=== PATIENT | female | born 1970 | race African-American/Black ===

== ENCOUNTER 2018-07-03 19:03 | Emergency (ER) | payer BC, MEDICAID ==
[~2018-07-03] VITALS: Ht 154.9 cm; Wt 51.3 kg
[2018-07-03 19:32] VITALS: BP 127/91
[2018-07-03] MEDS ORDERED: DIAZEPAM 5 MG TAB PO ONE (20:05)
[2018-07-03] MEDS ORDERED: KETOROLAC 30 MG/ML VIAL IM ONE (20:05)
[2018-07-03] MEDS ORDERED: HYDROcodone/APAP 5/325 MG 1 TAB TAB PO ONE (20:05)
[2018-07-03 21:11] VITALS: BP 115/71
== END 2018-07-03 21:11 | disposition home or self-care (01) ==
LOC: MED 19:03
DX: M50.30 Other cervical disc degeneration, unspecified cervical region (principal); Z88.0 Allergy status to penicillin; Z88.8 Allergy status to other drugs, medicaments and biological substances
CPT/HCPCS: 96372; 99284; J1885; Q0163

== ENCOUNTER 2018-07-05 17:55 | Emergency (ER) | payer BC, MEDICAID ==
[~2018-07-05] VITALS: Ht 160 cm; Wt 50.1 kg
[2018-07-05 18:13] VITALS: BP 126/78
--- NOTE | 2018-07-05 19:29 | NUR ---
PT TO ER BED 11 VIA WHEELCHAIR , TRANSFERRED TO BED WITH OUT ASSISTANCE.
--- NOTE | 2018-07-05 19:30 | NUR ---
ASSUMED CARE OF PT AT THIS TIME. C/O LEFT HIP PAIN S/P MECHANICAL FALL WHILE WALKING HER DOG. AAOX4 WITH EVEN AND STEADY GAIT; PATIENT STATES PAIN OF 10/10; VSS; PATIENT POSITIONED FOR COMFORT; HOB ELEVATED; BEDRAILS UP X2; BED DOWN. ER MD MADE AWARE OF PT STATUS. WILL CONTINUE TO MONITOR.
--- NOTE | 2018-07-05 20:30 | NUR ---
PT RETURN FROM XRAY
--- NOTE | 2018-07-05 20:56 | NUR ---
Dr. Evangelista evaluating patient at bedside.
[2018-07-05] MEDS ORDERED: traMADol 50 MG TAB PO ONE (21:05)
[2018-07-05 21:20] VITALS: BP 118/74
--- NOTE | 2018-07-05 21:20 | NUR ---
Patient discharged with v/s stable. Written and verbal after care instructions given and explained. Patient alert, oriented and verbalized understanding of instructions. Ambulatory with steady gait. All questions addressed prior to discharge. ID band removed. Patient advised to follow up with PMD. Rx of ULTRAM, BENADRYL, AND MOTRIN given. Patient educated on indication of medication including possible reaction and side effects. Opportunity to ask questions provided and answered.
== END 2018-07-05 21:10 | disposition home or self-care (01) ==
LOC: MED 17:55
DX: S70.02XA Contusion of left hip, initial encounter (principal); Z88.0 Allergy status to penicillin; Z88.8 Allergy status to other drugs, medicaments and biological substances; W18.09XA Striking against other object with subsequent fall, initial encounter; Y93.89 Activity, other specified; Y92.89 Other specified places as the place of occurrence of the external cause; Y99.8 Other external cause status
CPT/HCPCS: 72040; 73502; 99283; Q0163